=== PATIENT | male | born 1960 | race Caucasian/White ===

== ENCOUNTER → 2018-04-25 16:30 | Outpatient (CLI) | payer OTHER, SELFPAY ==
[2018-04-25 17:51] LABS: Anion Gap 9.7 mmol/L (3-11); BUN 32 mg/dL (7-18); CO2 27.3 mmol/L (21.0-32.0); CREATININE 1.54 mg/dL (0.70-1.30); Calcium 8.9 mg/dL (8.5-10.1); Chloride 107 mmol/L (98-107); Estimated GFR 46.63 (mL/min/1.73m2); Glucose 101 mg/dL (70-100); Potassium 4.1 mmol/L (3.5-5.1); Sodium 144 mmol/L (136-145)
[2018-05-01 11:53] LABS: PSA, Screening 0.5 ng/mL (0-3.5)
[2018-05-01 11:54] LABS: Cyclic Citrullinated Peptide <2.5 U/mL
[2018-05-01 11:55] LABS: Rheumatoid Factor <8 IU/mL
== END ==
PROVIDERS: PCP Nurse Practitioner Family; Visit Provider Nurse Practitioner Family
DX: I10 Essential (primary) hypertension (principal); E78.5 Hyperlipidemia, unspecified; R35.1 Nocturia; R39.12 Poor urinary stream; Z12.5 Encounter for screening for malignant neoplasm of prostate; M25.641 Stiffness of right hand, not elsewhere classified; M25.642 Stiffness of left hand, not elsewhere classified
CPT/HCPCS: 36415; 80048; 84153; 86200; 86431

== ENCOUNTER → 2018-04-25 16:38 | Outpatient (REF) | payer OTHER, SELFPAY ==
[2018-04-25 20:05] LABS: Bilirubin Negative (Negative); Blood Negative (Negative); Clarity Clear; Glucose Negative (Negative); Ketones Trace mg/dL (Negative); Leukocyte Esterase Negative (Negative); Nitrite Negative (Negative); Specific Gravity >= 1.030 (1.005-1.025); Urobilinogen 0.2 EU/dL (Up TO 0.2); pH 5.5 (5-8)
== END ==
LOC: LBN 16:38
PROVIDERS: PCP Nurse Practitioner Family; Visit Provider Nurse Practitioner Family
DX: R35.1 Nocturia (principal); R39.12 Poor urinary stream
CPT/HCPCS: 81003

== ENCOUNTER 2018-05-03 06:32 | Outpatient (CLI) | payer OTHER, SELFPAY ==
--- NOTE | 2018-05-03 14:56 | DI.REPORT_ITS ---
SYMPTOMS/DIAGNOSIS: BILATERAL FOCAL HAND PAIN/TENDERNESS, M79.641, ? OSTEOARTHRITIS VERSUS OTHER, SUSPECT TENDINITIS RIGHT HAND: Three views. There is mild soft tissue swelling of the index finger. No acute fracture, dislocation, lytic or sclerotic lesion is seen. The articular surfaces of the wrist appear well maintained, as are the metacarpophalangeal joints. There is mild narrowing and spurring of the distal interphalangeal joints of the hand, particularly the little finger. No periarticular erosions or soft tissue calcifications are seen. IMPRESSION: Mild osteoarthritis of the right hand. LEFT HAND: Three views. No priors. Mild joint space narrowing and periarticular spurring are seen at the distal interphalangeal joints of the hand, particularly the left little finger. The metacarpophalangeal joints and the articular surfaces in the wrist appear well maintained. The bones are intact and normally mineralized. No radiopaque foreign bodies are seen in the soft tissues. IMPRESSION: Very mild degenerative changes of the left hand.
== END 2018-05-03 06:33 ==
PROVIDERS: PCP Nurse Practitioner Family; Visit Provider Nurse Practitioner Family
DX: M79.641 Pain in right hand (principal); M79.642 Pain in left hand; M19.041 Primary osteoarthritis, right hand; M19.042 Primary osteoarthritis, left hand; M79.89 Other specified soft tissue disorders
CPT/HCPCS: 73130

== ENCOUNTER 2018-11-29 16:04 | Outpatient (CLI) | payer OTHER, SELFPAY ==
[2018-11-29 16:46] LABS: Abs Immature Grans 0.01 k/cumm (0.0-0.09); Absolute Basophil Count 0.01 k/cumm (0.0-0.2); Absolute Lymphocyte Count 1.05 k/cumm (1.2-3.4); Absolute Monocyte Count 0.31 k/cumm (0.11-0.7); Absolute Neutrophil Count 2.68 k/cumm (1.2-6.7); Basophils % 0.2; Eosinophils % 6.9; HCT 41.1 % (40.0-50.0); HGB 13.6 g/dL (13.5-17.5); Immature Grans % 0.2; Lymphocytes % 24.1; Mean Corp. HGB Concentration 33.1 g/dL (32.0-36.0); Mean Corpuscular Hemoglobin 30.5 pg (27.0-33.0); Mean Corpuscular Volume 92.2 fL (80-95); Mean Platelet Volume 9.7 fL (8.0-11.0); Monocytes % 7.1; Neutrophils % 61.5; Platelet Count 127 x1000/uL (130-400); RBC 4.46 m/cumm (4.50-6.00); RBC Distribution Width 12.9 % (11.8-14.1); White Blood Cell Count 4.36 k/cumm (4.4-10.8)
[2018-11-29 17:30] LABS: C-Reactive Protein 0.32 mg/dL (0.0-0.3); Uric Acid 5.6 mg/dL (3.5-7.2)
[2018-11-29 17:47] LABS: ESR 11 MM/HR (1-20)
[2018-12-02 12:33] LABS: Lyme Ab w Rflx to Lyme Confirm Negative
[2018-12-03 18:33] LABS: Anaplasma phagocytophilum Negative (Negative); B. miyamotoi PCR Negative (Negative); Babesia divergens/MO-1 Negative (Negative); Babesia duncani Negative (Negative); Babesia microti Negative (Negative); Ehrlichia chaffeensis Negative (Negative); Ehrlichia ewingii/canis Negative (Negative); Ehrlichia muris eauclairensis Negative (Negative)
== END 2018-11-29 16:24 ==
PROVIDERS: PCP Nurse Practitioner Family; Visit Provider Nurse Practitioner Family
DX: M25.50 Pain in unspecified joint (principal); M25.60 Stiffness of unspecified joint, not elsewhere classified; M10.9 Gout, unspecified
CPT/HCPCS: 36415; 85652; 84550; 85025; 86140; 86618; 87798

== ENCOUNTER 2019-01-07 15:35 | Outpatient (CLI) | payer OTHER, SELFPAY ==
[2019-01-07 18:57] LABS: Anion Gap 9.8 mmol/L (3-11); BUN 36 mg/dL (7-18); CO2 28.2 mmol/L (21.0-32.0); CREATININE 1.47 mg/dL (0.70-1.30); Calcium 8.9 mg/dL (8.5-10.1); Chloride 105 mmol/L (98-107); Estimated GFR 49.03 (mL/min/1.73m2); Glucose 104 mg/dL (70-100); Potassium 3.9 mmol/L (3.5-5.1); Sodium 143 mmol/L (136-145)
[2019-01-07 18:58] LABS: C-Reactive Protein 0.17 mg/dL (0.0-0.3)
== END 2019-01-07 15:55 ==
PROVIDERS: Student in an Organized Health Care Education/Training Program; PCP Nurse Practitioner Family; Visit Provider Nurse Practitioner Family
DX: M25.50 Pain in unspecified joint (principal); N18.9 Chronic kidney disease, unspecified; R79.89 Other specified abnormal findings of blood chemistry
CPT/HCPCS: 36415; 80048; 86140

== ENCOUNTER 2019-03-12 14:44 | Outpatient (CLI) | payer OTHER, SELFPAY ==
[2019-03-12 16:19] LABS: Ferritin 56 ng/mL (8-388)
== END 2019-03-12 15:04 ==
PROVIDERS: PCP Nurse Practitioner Family; Visit Provider Nurse Practitioner
DX: M25.50 Pain in unspecified joint (principal)
CPT/HCPCS: 36415; 82728

== ENCOUNTER 2019-03-18 01:26 | Outpatient (CLI) | payer OTHER, SELFPAY ==
--- NOTE | 2019-03-18 14:30 | NS.NUTBLAN_ITS ---
DESCRIPTION/ASSESSMENT: Kehinde Lynn presents for nutrition consult for weight management with his . He reports losing 6# over the past month. Breakfast: coffee with 3 spoons sugar, donut or pop tarts; snack and lunch is apple or boyle pie, granola bar, chocolate brownie for each meal. He drinks gatorade 20oz daily and occasionally Mountain Dew or orange soda. For supper he has meat, starch or tossed salad. One night a week he has chips and other snacks, and beer while playing cards with friends. Physical activity is challenging since he developed necrotizing fasciitis. He does enjoy riding his bike with [employer], hunting and he has a treadmill. INTERVENTION: Discussed food choices and impact on his health and weight. He recognizes that he does not make healthy food choices but is not very interested in giving up the food he likes. Discussed changing his snack/lunch that he is very committed to. Discussed physical activity and he is willing to get the bike going for daily rides. Kehinde has good support at home to make changes. He denies high stress. PLAN: Kehinde will try veggies/dip or leftovers for snack at work; cut out soda He will begin bike riding on a regular basis.
== END 2019-03-18 01:46 ==
PROVIDERS: PCP Nurse Practitioner Family; Visit Provider Dietitian, Registered
DX: E66.09 Other obesity due to excess calories (principal); Z68.39 Body mass index [BMI] 39.0-39.9, adult; Z71.3 Dietary counseling and surveillance
CPT/HCPCS: 97802

== ENCOUNTER 2020-06-11 02:20 | Outpatient (CLI) | payer OTHER, SELFPAY ==
[2020-06-11 08:01] LABS: Anion Gap 4.9 mmol/L (3-11); BUN 27 mg/dL (7-18); CO2 34.1 mmol/L (21.0-32.0); CREATININE 1.12 mg/dL (0.70-1.30); Calcium 8.8 mg/dL (8.5-10.1); Calculated LDL 87 mg/dL (<100); Chloride 107 mmol/L (98-107); Cholesterol 137 mg/dL (<200); Glucose 105 mg/dL (74-106); HDL Cholesterol 36 mg/dL (40-60); Potassium 4.6 mmol/L (3.5-5.1); Sodium 146 mmol/L (136-145); Triglyceride 70 mg/dL (<150)
== END 2020-06-11 02:40 ==
PROVIDERS: PCP Nurse Practitioner Family; Visit Provider Nurse Practitioner Family
DX: I10 Essential (primary) hypertension (principal); E78.5 Hyperlipidemia, unspecified
CPT/HCPCS: 36415; 80048; 80061

== ENCOUNTER 2020-07-06 08:58 | Outpatient (CLI) | payer OTHER, SELFPAY ==
[2020-07-09 12:31] LABS: Patient Race White; SARS-CoV-2 RNA Undetected (Undetected); SARS-CoV-2 Specimen Source Nasal
== END 2020-07-06 09:18 ==
PROVIDERS: PCP Nurse Practitioner Family; Visit Provider Nurse Practitioner Family
DX: J06.9 Acute upper respiratory infection, unspecified (principal)
CPT/HCPCS: U0003

== ENCOUNTER 2020-12-08 03:36 | Outpatient (CLI) | payer OTHER, SELFPAY ==
[2020-12-08 22:08] LABS: Iron 75 ug/dL (65-175); Total Iron Binding Capacity 297 ug/dL (250-450); Transferrin Sat 25 % (20-55)
[2020-12-08 22:21] LABS: Anion Gap 11.9 mmol/L (3-11); BUN 28 mg/dL (7-18); CO2 28.1 mmol/L (21.0-32.0); CREATININE 1.1 mg/dL (0.70-1.30); Calcium 8.7 mg/dL (8.5-10.1); Chloride 106 mmol/L (98-107); Ferritin 148 ng/mL (26-388); Glucose 64 mg/dL (74-106); Magnesium 1.9 mg/dL (1.8-2.4); Sodium 146 mmol/L (136-145)
[2020-12-09 04:39] LABS: Vitamin D 25 Total 27.1 ng/mL (30-100)
== END 2020-12-08 03:37 | disposition home or self-care (01) ==
LOC: LBO 03:36
PROVIDERS: PCP Nurse Practitioner Family; Visit Provider Nurse Practitioner
DX: E55.9 Vitamin D deficiency, unspecified (principal); R25.2 Cramp and spasm; D12.6 Benign neoplasm of colon, unspecified
CPT/HCPCS: 36415; 80048; 82306; 82728; 83540; 83550; 83735

== ENCOUNTER 2021-04-19 15:40 | Outpatient (CLI) | payer OTHER, SELFPAY ==
--- NOTE | 2021-04-19 14:15 | DI.RAD_ITS ---
Exam(s) XR FOOT LT COMPLETE EXAM: XR FOOT LT COMPLETE CLINICAL HISTORY: L heel pain. Spur? Stress frx?, M79.379 TECHNIQUE: COMPARISON: No exams were available for comparison FINDINGS: Three views were obtained. There is a large osteophyte of the site of attachment of the plantar fasc ia on the calcaneus, additionally there is an enthesophyte at the Achilles attachment on the calcaneu s. There may be minimal soft tissue calcification adjacent to the plantar surface of the calcaneus w hich is nonspecific.. Minimal degenerative changes of the IP joints of the toes noted. No other sig nificant bony abnormality seen. No evidence stress fracture by radiographic criteria. IMPRESSION: Prominent Achilles and plantar fascia attachment osteophytes. RADIATION DOSE DELIVERED: Total DLP
== END 2021-04-19 16:00 ==
PROVIDERS: PCP Nurse Practitioner Family; Visit Provider Family Medicine
DX: M79.672 Pain in left foot (principal); M25.775 Osteophyte, left foot
CPT/HCPCS: 73630

== ENCOUNTER 2021-12-16 02:21 | Outpatient (CLI) | payer OTHER, SELFPAY ==
[2021-12-16 16:52] LABS: Abs Immature Grans 0.01 10^3/uL (0.0-0.06); Absolute Basophil Count 0.02 10^3/uL (0.0-0.2); Absolute Eosinophil Count 0.22 10^3/uL (0.0-0.7); Absolute Lymphocyte Count 1.18 10^3/uL (1.2-3.4); Absolute Monocyte Count 0.24 10^3/uL (0.1-0.8); Absolute Neutrophil Count 3.35 10^3/uL (1.2-6.7); Basophils % 0.4; Eosinophils % 4.4; HCT 43.4 % (40.0-50.0); HGB 14.8 g/dL (13.5-17.5); Immature Grans % 0.2; Lymphocytes % 23.5; MCHC 34.1 % (32.0-36.0); Monocytes % 4.8; Neutrophils % 66.7; RBC 4.77 10^6/uL (4.36-5.78); RDW-SD 40.2 fL; WBC 5.02 10^3/uL (4.4-10.8)
[2021-12-16 17:00] LABS: Hemoglobin A1C 5.6 % (<5.7)
[2021-12-16 17:36] LABS: ALT 29 U/L (16-63); AST 25 U/L (15-37); Albumin 4.3 g/dL (3.4-5.0); Alkaline Phosphatase 50 U/L (46-116); Anion Gap 9.7 mmol/L (3-11); BUN 24 mg/dL (7-18); Bilirubin, Total 0.8 mg/dL (0.2-1.0); CO2 29.3 mmol/L (21.0-32.0); CREATININE 1.1 mg/dL (0.70-1.30); Calcium 8.3 mg/dL (8.5-10.1); Calculated LDL 63 mg/dL (<100); Chloride 106 mmol/L (98-107); Cholesterol 117 mg/dL (<200); Glucose 82 mg/dL (74-106); HDL Cholesterol 38 mg/dL (40-60); Potassium 3.8 mmol/L (3.5-5.1); Sodium 145 mmol/L (136-145); Total Protein 6.7 g/dL (6.4-8.2); Triglyceride 83 mg/dL (<150)
== END 2021-12-16 02:22 | disposition home or self-care (01) ==
LOC: LBO 02:21
PROVIDERS: PCP Nurse Practitioner Family; Visit Provider Nurse Practitioner Family
DX: E78.5 Hyperlipidemia, unspecified (principal); I10 Essential (primary) hypertension; R73.01 Impaired fasting glucose; N18.31 Chronic kidney disease, stage 3a; Z51.81 Encounter for therapeutic drug level monitoring
CPT/HCPCS: 36415; 80053; 80061; 83036; 85025

== ENCOUNTER 2022-12-08 02:16 | Outpatient (CLI) | payer OTHER, SELFPAY ==
[2022-12-08 07:36] LABS: Abs Immature Grans 0.01 10^3/uL (0.0-0.06); Absolute Basophil Count 0.04 10^3/uL (0.0-0.2); Absolute Eosinophil Count 0.31 10^3/uL (0.0-0.7); Absolute Lymphocyte Count 1.14 10^3/uL (1.2-3.4); Absolute Monocyte Count 0.33 10^3/uL (0.1-0.8); Basophils % 0.7; Eosinophils % 5.1; HCT 44.4 % (40.0-50.0); HGB 15.1 g/dL (13.5-17.5); Immature Grans % 0.2; Lymphocytes % 18.9; MCH 31.2 pg (27.0-33.0); MCV 92 fL (80-95); MPV 9.5 fL (8.0-11.0); Monocytes % 5.5; Neutrophils % 69.6; Platelet Count 125 10^3/uL (130-400); RBC 4.84 10^6/uL (4.36-5.78); RDW 11.9 % (11.8-14.1); RDW-SD 39.8 fL; WBC 6.03 10^3/uL (4.4-10.8)
[2022-12-08 07:47] LABS: Hemoglobin A1C 5.7 % (<5.7)
[2022-12-08 08:01] LABS: ALT 25 U/L (16-63); AST 18 U/L (15-37); Albumin 4.1 g/dL (3.4-5.0); Alkaline Phosphatase 54 U/L (46-116); Anion Gap 9.7 mmol/L (3-11); BUN 35 mg/dL (7-18); Bilirubin, Total 0.5 mg/dL (0.2-1.0); CO2 29.3 mmol/L (21.0-32.0); CREATININE 1.3 mg/dL (0.70-1.30); Calcium 8.5 mg/dL (8.5-10.1); Calculated LDL 62 mg/dL (<100); Chloride 106 mmol/L (98-107); Cholesterol 129 mg/dL (<200); Estimated GFR 61.73 (mL/min/1.73m2); Glucose 100 mg/dL (74-106); HDL Cholesterol 32 mg/dL (40-60); Sodium 145 mmol/L (136-145); Total Protein 7.1 g/dL (6.4-8.2); Triglyceride 178 mg/dL (<150)
== END 2022-12-08 02:17 | disposition home or self-care (01) ==
LOC: LBO 02:16
PROVIDERS: PCP Nurse Practitioner Family; Visit Provider Nurse Practitioner Family
DX: E78.5 Hyperlipidemia, unspecified (principal); R73.09 Other abnormal glucose; I10 Essential (primary) hypertension
CPT/HCPCS: 36415; 80053; 80061; 83036; 85025

== ENCOUNTER 2022-12-21 08:32 | Outpatient (CLI) | payer OTHER, SELFPAY ==
--- NOTE | 2022-12-21 08:30 | RT.EKG_ITS ---
APPROVED REPORT Exam: Resting ECG Reason for Exam: Shortness of breath on exertion Patient Location: O HR:53 bpm ECG Measurements Heart Rate 53 AXIS NY 238 P 68 QRSd 89 QRS 37 QT 443 T 37 QTc 416 Conclusion Sinus rhythm...normal P axis, V-rate 50- 99 Prolonged NY interval...NY >220, V-rate 50- 90 Abnormal R-wave progression, early transition...QRS area>0 in V2
== END 2022-12-21 08:33 | disposition home or self-care (01) ==
LOC: DI.KIM 08:33
PROVIDERS: PCP Nurse Practitioner Family; Visit Provider Nurse Practitioner Family
DX: R06.02 Shortness of breath (principal); I10 Essential (primary) hypertension
CPT/HCPCS: 93010

== ENCOUNTER 2022-12-25 00:19 | Outpatient (CLI) | payer OTHER, SELFPAY ==
--- NOTE | 2022-12-25 06:15 | ETT_ITS ---
APPROVED REPORT Exam: Exercise Treadmill Patient Location: Out-Patient Room/Bed: Stress Nurse: Amy Villeda RN Ordering Provider:HAIR DEL CID, Contact Number: [phone] BMI: 38.24 Baseline Rhythm: Sinus Bradycardia Indications: SOB, ?ischemia, MURILLO, Cardiomegaly Medical History Medical History: Asthma, CVA (2016), Depression, HLD, BERNARD, HTN, CKD, osteoarthritis, GERD, peripheral venous insufficiency, impaired fasting glucose Cardiac Medications: Albuterol sulfate, aspirin, atorvastin, ferrous sulfate, modafinil Allergies: NKA Cardiac Risk Factors: +family history, HTN, HLD, PVD, Asthma, former smoker, obesity Previous Cardiac Procedures: None Pretest Chest Pain Characteristics: none Exercise History: Sedentary Physical Disabilities: right leg w/ hx necrotizing fasciitis Lung Sounds: Clear Heart Sounds: Regular, distant Stress Test Details Test: Exercise stress testing was performed using a Kristian protocol. Rest Stress HR Resting HR Supine: 58 bpm Max Heart Rate (APMHR): 157 bpm Resting HR Standin bpm Target HR (85% APMHR): 133 bpm Max HR Achieved: 122 bpm % of APMHR: 78 Recovery HR: 71 bpm HR response to stress: Blunted HR response to stress BP Resting BP Supine: 128/62 mmHg Resting BP Standin/60 mmHg Max BP: 204/72 mmHg Recovery BP: 138/78 mmHg BP response to stress: Normal blood pressure response to stress. ECG Resting ECG: Sinus Bradycardia Ectopy: None Stress ECG: Sinus Tachycardia ST Change: No significant ST segment changes noted Arrhythmia: None Recovery ECG: Sinus Rhythm Recovery ST Change: No significant ST segment changes noted Recovery Arrhythmia: 1 PVC Clinical Reason for Termination: Fatigue Stress Symptoms: General Fatigue, Leg Fatigue Exercise duration: 7 min50 sec Highest Stage Reached: Stage 3: 3.4 mph at 14% grade. Exercise capacity: 9.90 METs Angina Score: None Walker Treadmill Score: 7.7 Rate Pressure Product: [id number] Stress ECG Conclusion 1. Resting electrocardiogram was within normal limits 2. Patient exercised on the Kristian protocol and completed a workload of 9.90 METS 3. Blunted heart rate response to exercise. The patient achieved 78% of predicted heart rate for age 4. Electrocardiographic portion of the test showed no evidence of myocardial ischemia at submaximal h eart rate 5. There were no dysrhythmias Walker Treadmill Score is 7.7 which is Low risk. Stress Test Summary STAGE Time (mins) Speed (mph) Grade (%) HR BP SpO2 SYMPTOMS METS Supine 58 128/62 Standing 68 104/60 93% 1 3 1.7 10 92 140/62 4.5 2 6 2.5 12 110 180/58 7 3 9 3.4 14 119 10 1 min recovery 103 194/60 3 min recovery 82 204/72 6 min recovery 73 160/76 9 min recovery 71 138/78 Patient was unable to reach his target heart rate due to leg/general fatigue.
== END 2022-12-25 00:39 ==
LOC: DI 00:19
PROVIDERS: PCP Nurse Practitioner Family; Visit Provider Nurse Practitioner Family
DX: I51.7 Cardiomegaly (principal); R06.09 Other forms of dyspnea
CPT/HCPCS: 93017

== ENCOUNTER 2022-12-29 00:46 | Outpatient (CLI) | payer OTHER, SELFPAY ==
--- NOTE | 2022-12-29 07:30 | DI.RAD_ITS ---
Exam(s) XR CHEST 2V PA LATERAL EXAM: XR CHEST 2V PA LATERAL CLINICAL HISTORY: ? cardiopulm abn to explain SOB,DYSPNEA,R06.09,I51.7 TECHNIQUE: 2D digital imaging was performed. COMPARISON: CT CHEST FOR PULMONARY EMBOLUS from 07/10/2016 FINDINGS: HEART: Normal size. Aorta: Not dilated. PULMONARY VASCULATURE: Normal. LUNGS: Clear. PLEURAL SPACE: No pleural effusion or pneumothorax. BONE:Degenerative changes in the spine. Postsurgical changes of the right shoulder. IMPRESSION: No acute abnormality. DATA REPOSITORY: RADIATION DOSE DELIVERED:
== END 2022-12-29 01:06 ==
LOC: DI 00:46
PROVIDERS: PCP Nurse Practitioner Family; Visit Provider Nurse Practitioner Family
DX: I51.7 Cardiomegaly (principal); R06.09 Other forms of dyspnea
CPT/HCPCS: 71046

== ENCOUNTER 2023-03-08 05:12 | Emergency (ER) | payer OTHER, SELFPAY ==
[2023-03-08] VITALS (16 sets, daily range): BP systolic 108–146; BP diastolic 67–112; PULSE 55–70; RESP 8–19; TEMP 36.4; O2SAT 84–99
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
--- NOTE | 2023-03-08 05:30 | DI.CT_ITS ---
Exam(s) CT CHEST/ABD/PEL WO CT THORACIC LUMBAR SPINE WO EXAM: CT CHEST/ABD/PEL WO CLINICAL HISTORY: Right-sided rib pain. TECHNIQUE: Imaging Protocol: Axial computed tomography images with coronal and sagittal reformatted images were created and reviewed Images of the thoracic and lumbar spine were reconstructed from the chest abdomen pelvic CT utilizing bone algorithm. CONTRAST MATERIAL: Noncontrast Oral: / no COMPARISON: CT CHEST FOR PULMONARY EMBOLUS from 04/25/2013 CT CHEST FOR PULMONARY EMBOLUS from 07/10/[address] THORACIC LUMBAR SPINE WO from 03/08/2023 FINDINGS: CHEST: Tracheobronchial tree: Patent where visualized. Pulmonary parenchyma: No consolidation or dominant measurable mass. Pleura: No effusion or pneumothorax. Lymph nodes: Within normal limits. Aorta: Thoracic portion non-dilated. Heart: Not enlarged. No pericardial effusion. No visible coronary artery calcifications. Bones: Thoracic spine shows degenerative changes with prominent endplate osteophytes. No lytic or bl astic lesions.No compression fractures. Right 4th and 5th nondisplaced rib fractures. ABDOMEN: Liver: Normal density. No measurable mass. Gallbladder and biliary tract: Status post cholecystectomy. No radiodense calculus or dilation. Pancreas: Normal density, no abnormal calcifications or inflammatory process. Spleen: Normal. Kidneys: Normal size, contour and axis. No radiodense stones or obstructive uropathy. Cyst upper tommy e left kidney. No suspicious masses seen. Adrenal glands: No masses seen. Aorta: Abdominal portion non-dilated. Mild atherosclerotic changes. Lymph nodes: Within normal limits. Soft tissues: Bilateral fatty containing inguinal hernias. Bones: Lumbar spine: Degenerative disc changes at L3-4 through L5-S1. Facet degenerative changes at these levels. Chronic appearing L5 spondylolysis and mild L5-S1 spondylolisthesis. Spondylolysis al so noted at L3-4 secondary to facet degenerative changes. PELVIS: Bladder: Symmetric distention, no gross wall thickening. Bowel: Sigmoid diverticulosis. No evidence of diverticulitis. Appendix normal. Normal quantity of stool. No obstruction or bowel wall thickening. Peritoneal cavity: No ascites, collection or mesenteric inflammatory response. Bones: No pelvic fracture. Reproductive organs: Within normal limits. IMPRESSION: Right 4th and 5th rib fractures, nondisplaced. No evidence of pneumothorax or pulmonary contusion. No acute thoracic spine or lumbar spine fracture. Degenerative changes. Old L5 spondylolysis and L5 -S1 spondylolisthesis. No acute posttraumatic abnormality in the abdomen or pelvis. RADIATION DOSE DELIVERED: 1534.54 mGy.cm Total DLP DATA REPOSITORY: All CT scans at this facility are submitted to the National Radiology Data Registry (NRDR) Dose Index Registry (DIR) with the [employer] (ACR). RADIATION OPTIMIZATION: All CT scans at this facility use at least one of these dose optimization te chniques: automated exposure control; mA and/or kV adjustment per patient size (includes targeted exa ms where dose is matched to clinical indication); or iterative reconstruction.
[2023-03-08] MEDS: Gabapentin 300 MG CAP PO (05:44)
[2023-03-08] MEDS: oxyCODONE 5 mg/Acetaminophen 325 mg TAB 2 TAB PO (05:44)
[2023-03-08] MEDS: Acetaminophen 325 MG TAB PO (05:44)
[2023-03-08] MEDS: Lidocaine 5% Patch 2 PATCH TP (05:44)
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
[2023-03-08] MEDS: Ibuprofen 200 MG TAB 400 MG PO (07:04)
--- NOTE | 2023-03-08 13:19 | NUR.NOTE ---
Nursing Note: Referral faxed to PCP for rib fx to be seen in 1 week.
== END 2023-03-08 07:09 | disposition home or self-care (01) ==
PROVIDERS: Emergency Provider Emergency Medicine; PCP Nurse Practitioner Family
DX: S22.41XA Multiple fractures of ribs, right side, initial encounter for closed fracture (principal); G47.33 Obstructive sleep apnea (adult) (pediatric); I12.9 Hypertensive chronic kidney disease with stage 1 through stage 4 chronic kidney disease, or unspecified chronic kidney disease; N18.9 Chronic kidney disease, unspecified; M79.641 Pain in right hand; M54.6 Pain in thoracic spine; V86.09XA Driver of other special all-terrain or other off-road motor vehicle injured in traffic accident, initial encounter; Y93.89 Activity, other specified; Y92.89 Other specified places as the place of occurrence of the external cause; Y99.9 Unspecified external cause status; Z87.891 Personal history of nicotine dependence
CPT/HCPCS: 71250; 76604; 99284; 72128; 72131; 74176

== ENCOUNTER 2023-03-21 03:12 | Outpatient (CLI) | payer OTHER, SELFPAY ==
--- NOTE | 2023-03-21 14:08 | DI.US_ITS ---
APPROVED REPORT EXAM: Comprehensive 2D, Doppler, and color-flow Echocardiogram Patient Location: Out-Patient Finished Metal Repairer: Cindi Suresh RDCS (AE) Other Information Study Quality: Adequate Conclusion Normal left ventricular wall thickness and chamber size. Ejection fraction is 60%. Wall motion is n ormal Normal right ventricular size and systolic function Both atria are normal in size Aortic valve is sclerotic and trileaflet without stenosis or regurgitation There is no additional structural or hemodynamically significant valvular disease Wall motion Left Ventricle The left ventricle is normal size. The left ventricular systolic function is normal. The left ventric ular ejection fraction is within the normal range. There is normal left ventricular wall thickness. T here is normal LV segmental wall motion. There is no ventricular septal defect visualized. LVEF is 60 %. Right Ventricle The right ventricle is normal size. The right ventricular systolic function is normal. The RVSP is 24 .1_ mmHg. Atria The left atrium size is normal. The right atrium size is normal. The interatrial septum is intact wit h no evidence for an atrial septal defect. Aortic Valve The Aortic valve is sclerotic. Aortic valve is trileaflet. There is no aortic valvular stenosis. No a ortic regurgitation is present. Mitral Valve The mitral valve is normal in structure. No evidence of mitral valve stenosis. Trace mitral regurgita tion. Tricuspid Valve The tricuspid valve is normal in structure. There is no tricuspid valve stenosis. Trace to mild tricu spid regurgitation. Pulmonic Valve The pulmonary valve is normal in structure. There is no pulmonic valvular stenosis. Trace pulmonic re gurgitation. Great Vessels The aortic root is normal in size. The ascending aorta is normal in size. Aortic arch is not well vis ualized. IVC is normal in size and collapses >50% with inspiration. Pericardium There is no pericardial effusion. 2D Dimensions IVSD d PLAX 0.98 cm M: 0.6-1.2 LV Vol A2C d MOD 138.2 mL LVPW d PLAX 0.99 cm M: 0.6 - 1.2 LV Vol A4C d MOD 140.0 mL LVID d PLAX 4.74 cm M: 4.2 - 5.8 LA vol/ BSA A2C s A-L 41.1 mL/m2 LVDs 3.25 cm M: 2.5 - 4.0 LA vol/ BSA A4C s A-L 28.0 mL/m2 Ao Root d 3.50 cm M: 3.1 - 3.7 LA Vol/ BSA Biplane s A-L 34.1 mL/m2 RA Area A4C 14.48 cm2 LA Area A4C s MOD 20.56 cm2 RA Vol/ BSA A4C s A-L 14.7 mL/m2 LA Area A2C s MOD 25.07 cm2 Ao Asc Diam d 3.22 cm M: 2.6 - 3.4 LV EF A4C MOD 61.7 % LV EF Teichholz 58.9 % LV EF A2C MOD 56.3 % LVEF (Brown's) 59.41 % M: 52 - 72 LV EF Biplane MOD 59.4 % LV Volume 102.65 mL M: 62 - 150 SV 83.96 mL LV Volume Index 46.44 mL/m2 M: 34 - 74 SV Index 38.02 mL/m2 LV Vol Biplane MOD 141.3 mL FS 31.15 % M-Mode TAPSE 1.98 cm (M/F) >1.7 LV Diastology MV E' medial 0.093 (>0.07 m/s) E/A Ratio 0.8 LV E/e MED 8.95 (<14) MV E Vmax 0.83 (0.4-1.3 m/s) MV E' lateral 0.077 (>0.1 m/s) MV A Vmax 1.00 (0.4-1.3 m/s) LV E/e LAT 10.80 (<14) MV E/A Ratio 0.80 MV E/E' medial 8.98 MV E/E' lateral 10.84 Aortic Valve LVOT Area 3.52 cm2 AoV Area Vmax 2.85 cm2 LVOT Vmax 1.17 m/s AoV Area/ BSA (Vmax) 1.29 cm2/m2 LVOT Mean Uli. 0.71 m/s CHAVEZ Mean Uli. 2.56 cm2 LVOT Peak Grad 5.5 mmHg CHAVEZ Mean Uli. Index 1.16 cm2/m2 LVOT Mean Grad 2.4 mmHg LVOT VTI 0.268 m LVOT Diam s 2.10 cm AoV Vmax 1.45 m/s Velocity Ratio 0.81 AoV Mean Uli. 0.97 m/s AoV Peak Grad 8.4 mmHg LVOT SV 94.14 mL AoV Mean Grad 4.4 mmHg AoV VTI 0.310 m AoV Area VTI 3.04 cm2 AoV Area/ BSA (VTI) 1.38 cm/m2 Mitral Valve MV DT 196 (160-240 msec) MV PHT 57 msec MV Area PHT 3.87 cm2 MV VTI 0.347 m MV Area VTI 2.71 (4.0-6.0 cm2) Pulmonary Valve PV Vmax 1.05 (0.5-1.5 m/s) RVOT Peak Gr. 1.84 mmHg PV Peak Grad 4.4 mmHg RVOT Mean Gr. 0.85 mmHg PV Mean Grad 2.4 mmHg RVOT VTI 0.170 m PV VTI 0.264 m RVOT Vmax 0.68 m/s Tricuspid Valve TR Peak Grad 21.1 mmHg TR Vmax 2.30 m/s RA Pressure 3.00 mmHg RVSP (TR) 24.1 mmHg
== END 2023-03-21 03:32 ==
LOC: DI 03:13
PROVIDERS: PCP Nurse Practitioner Family; Visit Provider Nurse Practitioner Family
DX: I51.7 Cardiomegaly (principal); R06.09 Other forms of dyspnea
CPT/HCPCS: 93306

== ENCOUNTER 2023-11-13 04:24 | Outpatient (CLI) | payer OTHER, SELFPAY ==
[2023-11-13 07:12] LABS: Abs Immature Grans 0.02 10^3/uL (0.0-0.06); Absolute Basophil Count 0.04 10^3/uL (0.0-0.2); Absolute Eosinophil Count 0.59 10^3/uL (0.0-0.7); Absolute Lymphocyte Count 1.04 10^3/uL (1.2-3.4); Absolute Monocyte Count 0.29 10^3/uL (0.1-0.8); Absolute Neutrophil Count 3.93 10^3/uL (1.2-6.7); Basophils % 0.7; HCT 42.8 % (40.0-50.0); HGB 14.9 g/dL (13.5-17.5); Immature Grans % 0.3; Lymphocytes % 17.6; MCH 31.8 pg (27.0-33.0); MCHC 34.8 % (32.0-36.0); MCV 91 fL (80-95); MPV 9.7 fL (8.0-11.0); Monocytes % 4.9; Neutrophils % 66.5; Platelet Count 122 10^3/uL (130-400); RBC 4.69 10^6/uL (4.36-5.78); RDW 12.4 % (11.8-14.1); RDW-SD 41.4 fL; WBC 5.91 10^3/uL (4.4-10.8)
[2023-11-13 07:27] LABS: Hemoglobin A1C 5.6 % (<5.7)
[2023-11-13 07:37] LABS: ALT 22 U/L (16-63); AST 24 U/L (15-37); Albumin 3.9 g/dL (3.4-5.0); Alkaline Phosphatase 47 U/L (46-116); Anion Gap 6.4 mmol/L (3-11); BUN 29 mg/dL (7-18); Bilirubin, Total 0.7 mg/dL (0.2-1.0); CO2 29.6 mmol/L (21.0-32.0); CREATININE 1.2 mg/dL (0.70-1.30); Calcium 8.8 mg/dL (8.5-10.1); Calculated LDL 85 mg/dL (<100); Chloride 108 mmol/L (98-107); Cholesterol 144 mg/dL (<200); Estimated GFR 67.53 (mL/min/1.73m2); Glucose 108 mg/dL (74-106); HDL Cholesterol 40 mg/dL (40-60); Potassium 3.9 mmol/L (3.5-5.1); Sodium 144 mmol/L (136-145); Total Protein 6.8 g/dL (6.4-8.2); Triglyceride 96 mg/dL (<150)
[2023-11-13 19:12] LABS: PSA, Screening 0.6 ng/mL (<=4.5)
== END 2023-11-13 04:25 | disposition home or self-care (01) ==
LOC: LBO 04:25
PROVIDERS: Absent Provider Nurse Practitioner Adult Health; PCP Nurse Practitioner Adult Health; Referring Provider Nurse Practitioner Adult Health; Visit Provider Nurse Practitioner Adult Health
DX: I10 Essential (primary) hypertension (principal); E78.5 Hyperlipidemia, unspecified; R73.01 Impaired fasting glucose; N18.9 Chronic kidney disease, unspecified; Z12.5 Encounter for screening for malignant neoplasm of prostate
CPT/HCPCS: 36415; 80053; 80061; 84153; 83036; 85025

== ENCOUNTER 2024-07-11 00:50 | Outpatient (CLI) | payer OTHER, SELFPAY ==
--- NOTE | 2024-07-11 14:28 | DI.RAD_ITS ---
Exam(s) XR THUMB RT XR WRIST RT COMPLETE EXAM: XR WRIST RT COMPLETE CLINICAL HISTORY: ? distal rad old fx or bony abnl,g89.29. TECHNIQUE: 2D digital imaging was performed. Three views of the wrist and thumb. COMPARISON: CR LEFT HAND COMPLETE from 05/03/2018 CR XR THUMB RT from 07/11/2024 FINDINGS: BONES: No acute fracture is present. No bony destructive lesion is seen. JOINTS: Joint space narrowing and spurring at the 1st carpal metacarpal joint. There is mild lateral subluxation. Minimal degenerative changes elsewhere. SOFT TISSUE: Vascular calcifications. IMPRESSION: Moderate degenerative changes at the 1st carpal metacarpal joint. DATA REPOSITORY: RADIATION DOSE DELIVERED:
== END 2024-07-11 01:10 ==
PROVIDERS: PCP Nurse Practitioner Adult Health; Visit Provider Nurse Practitioner Adult Health
DX: M18.31 Unilateral post-traumatic osteoarthritis of first carpometacarpal joint, right hand (principal); G89.29 Other chronic pain
CPT/HCPCS: 73110; 73140

== ENCOUNTER 2025-02-13 01:38 | Outpatient (CLI) | payer OTHER, SELFPAY ==
[2025-02-13 12:11] LABS: HCT 44.8 % (40.0-50.0); HGB 14.9 g/dL (13.5-17.5); MCH 31.2 pg (27.0-33.0); MCHC 33.3 % (32.0-36.0); MCV 94 fL (80-95); Platelet Count 113 10^3/uL (130-400); RBC 4.78 10^6/uL (4.36-5.78); RDW 12.2 % (11.8-14.1); RDW-SD 42.6 fL; WBC 5.98 10^3/uL (4.4-10.8)
[2025-02-13 12:24] LABS: Hemoglobin A1C 5.5 % (<5.7)
[2025-02-13 12:35] LABS: ALT 26 U/L (16-63); AST 19 U/L (15-37); Alkaline Phosphatase 51 U/L (46-116); Anion Gap 6.9 mmol/L (3-11); BUN 27 mg/dL (7-18); Bilirubin, Total 0.6 mg/dL (0.2-1.0); CO2 29.1 mmol/L (21.0-32.0); CREATININE 1.2 mg/dL (0.70-1.30); Calcium 8.6 mg/dL (8.5-10.1); Calculated LDL 83 mg/dL (<100); Chloride 108 mmol/L (98-107); Cholesterol 137 mg/dL (<200); Estimated GFR 67.11 (mL/min/1.73m2); Glucose 106 mg/dL (74-106); HDL Cholesterol 45 mg/dL (>or=40); Potassium 4.3 mmol/L (3.5-5.1); Sodium 144 mmol/L (136-145); Total Protein 6.9 g/dL (6.4-8.2); Triglyceride 45 mg/dL (<150)
[2025-02-13 13:21] LABS: COMMENT (LAB VIEW ONLY) 190.53 mg/dL; Microalb ug/mg Crea 33.7 ug/mg Cr
== END 2025-02-13 01:39 | disposition home or self-care (01) ==
PROVIDERS: PCP Nurse Practitioner Adult Health; Visit Provider Nurse Practitioner Adult Health
DX: I10 Essential (primary) hypertension (principal); E78.5 Hyperlipidemia, unspecified; R73.01 Impaired fasting glucose; D69.6 Thrombocytopenia, unspecified; N18.30 Chronic kidney disease, stage 3 unspecified
CPT/HCPCS: 36415; 80053; 80061; 85027; 82043; 82570; 83036

== ENCOUNTER 2025-03-05 02:53 | Outpatient (CLI) | payer OTHER, SELFPAY ==
[2025-03-05 18:46] LABS: PSA, Diagnostic 0.7 ng/mL (<=4.5)
== END 2025-03-05 02:54 | disposition home or self-care (01) ==
PROVIDERS: PCP Nurse Practitioner Adult Health; Visit Provider Nurse Practitioner Adult Health
DX: R39.9 Unspecified symptoms and signs involving the genitourinary system (principal); N40.1 Benign prostatic hyperplasia with lower urinary tract symptoms
CPT/HCPCS: 36415; 84153